=== PATIENT | male | born 1975 | race African-American/Black ===

== ENCOUNTER 2017-07-16 05:27 | Observation (INO) | payer OTHER ==
[~2017-07-16] VITALS: Ht 180.3 cm; Wt 126.6 kg
[~2017-07-16 05:27] MED LIST: ULTRAM50 MG PO
[2017-07-16 07:05] LABS: BASOPHILS # (AUTO) 0.1 (0.0-0.1); BASOPHILS % 0.5 % (0.0-1.0); EOSINOPHILS # (AUTO) 0.4 (0.0-0.4); EOSINOPHILS % 3.4 % (0.0-6.0); HEMATOCRIT 35.6 % (38.2-49.6); HEMOGLOBIN 11.9 g/dL (14.0-18.0); LYMPHOCYTES # (AUTO) 2.5 (1.0-3.2); LYMPHOCYTES % 22.9 % (18.0-39.1); MEAN CORPUSCULAR HEMOGLOBIN 29.7 pg (28-32); MEAN CORPUSCULAR HGB CONC 33.4 g/dL (31-35); MEAN CORPUSCULAR VOLUME 88.8 fL (81-99); MONOCYTES # (AUTO) 0.8 (0.2-0.8); MONOCYTES % 7.5 % (4.4-11.3); NEUTROPHILS # (AUTO) 7.2 (2.1-6.9); NEUTROPHILS % 65.2 % (38.7-80.0); PLATELET COUNT 291 x10e3/uL (140-360); RED BLOOD COUNT 4.01 x10e6/uL (4.3-5.7); RED CELL DISTRIBUTION WIDTH 14.4 % (11.7-14.4)
[2017-07-16 07:09] LABS: ANION GAP 10.1 mmol/L (8-16); BLOOD UREA NITROGEN 16 mg/dL (7-26); BUN/CREATININE RATIO 19 (6-25); CARBON DIOXIDE 23 mmol/L (22-29); CHLORIDE 106 mmol/L (98-107); CREATININE, SERUM 0.86 mg/dL (0.72-1.25); EST GLOMERULAR FILTRATION RATE > 60 ML/MIN (60-); GLUCOSE 97 mg/dL (74-118); POTASSIUM 4.1 mmol/L (3.5-5.1); SODIUM 135 mmol/L (136-145)
[2017-07-16] MEDS ORDERED: CLINDAMYCIN 300MG 50 ML IV ONE (07:38)
[2017-07-16] MEDS ORDERED: NEOSTIGMINE 1 MG/ML 10ML VIAL ONE (08:51)
--- NOTE | 2017-07-16 10:12 | Operative Report ---
DATE OF PROCEDURE: July 16, 2017 PREOPERATIVE DIAGNOSIS: Hematoma, left thigh. POSTOPERATIVE DIAGNOSIS: Hematoma, left thigh. PROCEDURE PERFORMED: Repair of hematoma of the left thigh. ANESTHESIA: General. ESTIMATED BLOOD LOSS: Minimal. DRAINS: None. COMPLICATIONS: None. INDICATIONS AND FINDINGS: This patient is a 42-year-old male who approximately 3 months ago sustained blunt trauma to the left thigh when he was hit with a forklift. Patient developed a hematoma that did not resolve and now is admitted for drainage. INTRAOPERATIVE FINDINGS: The patient had a large hematoma that encompassed most of the anterior surface of the left thigh. The hematoma was liquified. There was no pus. About 2 L of old blood and liquified hematoma were removed along with some organized debris. Two 10-mm flat Jayden-Raphael drains were left to drain the cavity. DESCRIPTION OF PROCEDURE: With the patient lying on the operative table in the supine position, after administration of general anesthesia, he was prepped and draped for incision and drainage of hematoma of the left thigh. An incision was made in the middle of the large hematoma, which occupied all of the thigh. The external dimensions of the hematoma were grossly about 20 x 20 cm at least. After we suctioned out all of the hematoma, we placed two 10-mm flat Jayden-Raphael drains crisscrossed and brought out inferiorly and secured to the skin with 2-0 silk. The cavity was irrigated. Then the midline wound was closed using 2-0 plain catgut for the soft tissues and 3-0 silk for the skin. The drains were secured with 2-0 silk also to the skin, and the other wounds were closed using 3-0 silk. A sterile dressing was applied. The patient tolerated the procedure well and was taken to the recovery room in stable condition. Job#: [id number]
[2017-07-16] MEDS: HYDROMORPHONE 2MG/ML INJ IV PRN ×2 (11:16→22:08)
[2017-07-16] MEDS: ONDANSETRON HCL INJ 2 MG/ML VIAL IV PRN ×2 (11:17→22:08)
[2017-07-16 12:22] VITALS: BP 104/70
[2017-07-16] MEDS: SODIUM CHLORIDE 0.9% 1000ML 1,000 ML IV SCH ×2 (12:52→22:08)
[2017-07-16] MEDS: CLINDAMYCIN 600MG/D5W 50ML 50 ML IV SCH ×2 (13:22→21:58)
[2017-07-16 13:43] VITALS: BP 104/70
[2017-07-16 15:30] VITALS: BP 104/70
[2017-07-16 15:37] VITALS: BP 115/72
[2017-07-16] MEDS ORDERED: MIDAZOLAM HCL 2 MG/2 ML VIAL ONE (19:19)
[2017-07-16] MEDS ORDERED: FENTANYL CITRATE/PF 100MCG/2 ML INJ ONE (19:19)
[2017-07-16] MEDS ORDERED: KETOROLAC TROMETHAMINE 30 MG/ML VIAL ONE (19:28)
[2017-07-16] MEDS ORDERED: SEVOFLURANE INHAL SOLN 250 ML PEN BTL ONE (19:28)
[2017-07-16] MEDS ORDERED: ONDANSETRON HCL INJ 2 MG/ML VIAL ONE (19:28)
[2017-07-16] MEDS ORDERED: DEXAMETHASONE SOD PHOS INJ 4 MG/ML VIAL ONE (19:28)
[2017-07-16] MEDS ORDERED: LIDOCAINE HCL 2% LOCAL INJ 5 ML SDV VIAL INJ ONE (19:28)
[2017-07-16] MEDS ORDERED: PROPOFOL IV EMULSION 10 MG/ML 20 ML VIAL ONE (19:28)
[2017-07-16 20:00] VITALS: BP 116/54
[2017-07-16 21:56] VITALS: BP 116/54
[2017-07-17] VITALS: BP 109/59
[2017-07-17 04:00] VITALS: BP 105/51
[2017-07-17] MEDS: SODIUM CHLORIDE 0.9% 1000ML 1,000 ML IV SCH (05:33)
[2017-07-17] MEDS ORDERED: TYLENOL WITH C1 EACH PO (08:24)
[2017-07-17] MEDS ORDERED: CLINDAMYCIN HC150 MG (08:25)
[2017-07-17 08:31] VITALS: BP 126/83
[2017-07-17 08:53] VITALS: BP 126/83
== END 2017-07-17 09:28 | disposition home or self-care (01) ==
LOC: OR 05:27 → IMCU 10:14 → EDSEX 10:30
PROVIDERS: ADMIT Surgery; ATTEND Surgery
DX: S70.12XA Contusion of left thigh, initial encounter (principal); V83.7XXA Person on outside of special industrial vehicle injured in nontraffic accident, initial encounter; Y99.0 Civilian activity done for income or pay; J45.909 Unspecified asthma, uncomplicated; Z01.810 Encounter for preprocedural cardiovascular examination; Z01.812 Encounter for preprocedural laboratory examination; Z87.891 Personal history of nicotine dependence
CPT/HCPCS: 10140; 36415; 80048; 85025; 88304; 93005; G0378 ×2; J1100; J1170; J1885; J2001; J2250; J2405; J2710; J7030